=== PATIENT | male | born 1985 | race Two or more races ===

== ENCOUNTER 2017-03-22 11:46 | Emergency (ER) | payer OTHER ==
[2017-03-22 12:37] VITALS: BP 124/77; PULSE 99; BMI 50.1
[2017-03-22] MEDS ORDERED: DEXAMETHASONE LIQUID 0.5 MG/5 ML 240 ML BULK BOTTLE PO ONE (12:58)
[2017-03-22] MEDS ORDERED: ACETAMINOPHEN 500 MG TABLET (FP) PO ONE (13:01)
[2017-03-22] MEDS ORDERED: DEXAMETHASONE SOD PHOSPHATE 10 MG/1 ML VIAL ONE (13:02)
[2017-03-22] MEDS ORDERED: ACETAMINOPHEN 500 MG TABLET (FP) ONE (13:03)
--- NOTE | 2017-03-22 13:03 | PDOC ---
History of Present Illness - General Chief Complaint: Cold Symptoms Stated Complaint: FEVER, COUGH Time Seen by Provider: 03/22/17 12:45 History Source: Patient Exam Limitations: No Limitations - History of Present Illness Initial Comments: 03/22/17 12:59 This a 31-year-old male without significant past medical history presents emergency Department with 2 days of fever, nasal congestion, dry cough, sore throat, body aches. He reports was in his usual state of health until yesterday morning when symptoms appeared. Patient states she has not had any sick contacts but does state there are 5 children in the house all school-age. Patient spouse's with the patient who reports he has hoarseness in his voice. Patient denies chest pain, shortness of breath, abdominal pain, nausea, vomiting. Patient had one episode of brown diarrhea this morning. PMH: Denies PSH: Denies PMD: Jaja Cevallos Past History - Past Medical History Allergies/Adverse Reactions: Allergies Allergy/AdvReac Type Severity Reaction Status Date / Time No Known Allergies Allergy Verified 03/22/17 12:29 Home Medications: Ambulatory Orders Oseltamivir Phosphate [Tamiflu -] 75 mg PO BID #10 capsule 03/22/17 CVA: No COPD: No DVT: No Dementia: No - Surgical History Appendectomy: Yes - Immunization History Immunization Up to Date: Yes - Suicide/Smoking/Psychosocial Hx Smoking History: Never smoked Have you smoked in the past 12 months: No Information on smoking cessation initiated: No Hx Alcohol Use: No Drug/Substance Use Hx: No Substance Use Type: None Review of Systems - Review of Systems Able to Perform ROS?: Yes Is the patient limited Hungarian proficient: No Constitutional: Yes: See HPI HEENTM: Yes: See HPI Respiratory: Yes: See HPI Cardiac (ROS): No: Symptoms Reported ABD/GI: Yes: See HPI : No: Symptoms Reported Musculoskeletal: Yes: See HPI Integumentary: No: Symptoms Reported Neurological: No: Symptoms reported *Physical Exam - Vital Signs Last Vital Signs Temp Pulse Resp BP Pulse Ox 102.7 F H 99 H 16 124/77 97 03/22/17 12:30 03/22/17 12:30 03/22/17 12:30 03/22/17 12:30 03/22/17 12:30 - Physical Exam General Appearance: Yes: Appropriately Dressed. No: Apparent Distress HEENT: positive: TMs Normal, Muffled/Hoarse voice, Pharyngeal Erythema, Tonsillar Erythema (+3 swelling present), Nasal Congestion. negative: Sinus Tenderness Neck: positive: Trachea midline, Supple. negative: Tender Respiratory/Chest: positive: Lungs Clear, Normal Breath Sounds. negative: Chest Tender, Respiratory Distress, Accessory Muscle Use Cardiovascular: positive: Regular Rhythm, Regular Rate, S1, S2. negative: Edema , Murmur Gastrointestinal/Abdominal: positive: Normal Bowel Sounds, Soft. negative: Tender Musculoskeletal: positive: Normal Inspection, Other (no tenderness to joints.). negative: CVA Tenderness Extremity: positive: Normal Inspection Integumentary: positive: Normal Color, Dry Neurologic: positive: automatic thread winder II-XII NML intact, Fully Oriented, Alert, Normal Mood/ Affect, Normal Response, Motor Strength 5/5 Medical Decision Making - Medical Decision Making 03/22/17 13:03 A/P: 31-year-old male without past medical history here with 2 days of fever, sore throat, body aches, dry cough. Tonsillar erythema noted with +3 tonsillar swelling. No exudates. No cervical lymphadenopathy present Lungs clear to auscultation bilaterally. Skin warm to touch Rapid influenza testing Tylenol 1 g Decadron 10 mg orally Reassess 03/22/17 13:56 Influenza testing is positive for influenza B. I will treat patient with Tamiflu 75 mg twice a day. *DC/Admit/Observation/Transfer Diagnosis at time of Disposition: Influenza B - Discharge Dispostion Disposition: HOME Condition at time of disposition: Stable Admit: No - Prescriptions Prescriptions: Oseltamivir Phosphate [Tamiflu -] 75 mg PO BID #10 capsule - Referrals Referrals: Jaja Cevallos MD [Primary Care Provider] - - Patient Instructions Additional Instructions: Rest, drink lots of fluids: Teas, water, soups, Pedialyte Saltwater gargles Steamy showers/seem to face break up mucus Avoid contact with others until fevers and cough resolved Lots of handwashing and good hygiene Continue [id number] medications for symptomatic relief Tylenol or Motrin for fever and pain Take Tamiflu 75mg twice a day for 5 days. Avoid your children. Followup with private physician in one to 2 days as needed Return to emergency department for worsened symptoms, fevers, dehydration - Post Discharge Activity
[2017-03-22 14:08] VITALS: TEMP 99.7
== END 2017-03-22 14:08 | disposition home or self-care (01) ==
LOC: JERFT 11:46
DX: J10.1 Influenza due to other identified influenza virus with other respiratory manifestations (principal)
CPT/HCPCS: 87804; 99281-25

== ENCOUNTER 2021-01-24 14:35 | Emergency (ER) | payer OTHER ==
[2021-01-24 14:55] VITALS: TEMP 99.2; BMI 51.7
[2021-01-24] MEDS ORDERED: FAMOTIDINE 20 MG/50 ML IVPB 20 MG in PREMIX 50 IVPB ONE (16:22)
[2021-01-24] MEDS ORDERED: MAG HYDROX/AL HYDROX/SIMETH -MYLANTA- ORAL SUSPENSION PO ONE (16:22)
[2021-01-24 16:26] VITALS: BP 139/64; PULSE 109
[2021-01-24] MEDS ORDERED: MAG HYDROX/AL HYDROX/SIMETH 30 ML UNIT-DOSE CUP ONE (16:33)
[2021-01-24] MEDS ORDERED: FAMOTIDINE/PF 20 MG/2 ML VIAL ONE (16:43)
[2021-01-24 17:03] LABS: BASO % 0.7 % (0-2.0); EOS % 1.1 % (0-4.5); HEMATOCRIT 39.4 % (35.4-49); LYMPH % 20.7 % (8-40); MCH 27.4 pg (25.7-33.7); MCHC 33.1 g/dl (32.0-35.9); MEAN CELL VOLUME 82.7 fl (80-96); MEAN PLT VOLUME 7.3 fl (7.5-11.1); NEUT % 69.5 % (42.8-82.8); PLATELET COUNT 265 10^3/uL (134-434); RBC 4.76 M/mm3 (4.00-5.60); RDW 14.7 % (11.9-15.9)
[2021-01-24 18:23] LABS: CHLORIDE 106 mmol/L (98-107); SODIUM 141 mmol/L (136-145)
[2021-01-24 18:24] LABS: CALCIUM 8.9 mg/dL (8.5-10.1)
[2021-01-24 18:25] LABS: ALBUMIN 3.7 g/dl (3.4-5.0); ANION GAP 5 MMOL/L (8-16); BLOOD UREA NITROGEN 13.1 mg/dL (7-18); CO2 29 mmol/L (21-32); GLUCOSE,RANDOM 101 mg/dL (74-106)
[2021-01-24 18:26] LABS: LIPASE 61 U/L (73-393)
[2021-01-24 18:28] LABS: SGOT/AST 22 U/L (15-37); SGPT/ALT 38 U/L (13-61)
[2021-01-24 18:30] LABS: BILIRUBIN,TOTAL 0.3 mg/dL (0.2-1); TOT PROT 7.7 g/dl (6.4-8.2)
[2021-01-24 18:31] LABS: ALK PHOS 66 U/L (45-117)
== END 2021-01-24 19:35 | disposition home or self-care (01) ==
LOC: JER 14:35
PROC: 3E033GC Introduction of Other Therapeutic Substance into Peripheral Vein, Percutaneous Approach (ICD-10-PCS; principal; 2021-01-24)
DX: R07.9 Chest pain, unspecified (principal); K21.9 Gastro-esophageal reflux disease without esophagitis
CPT/HCPCS: 36415; 71045-TC-FY; 80053; 82550; 82553; 82962; 83690; 84484; 85025; 93005; 93010; 99285-25